=== PATIENT | female | born 2000 | race Caucasian/White ===

== ENCOUNTER 2021-12-11 00:15 | Emergency (ER) | payer OTHER ==
[~2021-12-11] VITALS: Ht 167.6 cm; Wt 56.7 kg
[2021-12-11 00:15] VITALS: BP 90/60
--- NOTE | 2021-12-11 00:17 | NUR ---
PT BIBA BLS ER BED 8
[2021-12-11] MEDS ORDERED: NACL 0.9% 1,000 ML IV ONE (00:20)
[2021-12-11] MEDS ORDERED: ONDANSETRON 4 MG/2 ML VIAL IVP ONE (00:20)
--- NOTE | 2021-12-11 01:18 | NUR ---
FRIEND, MAYR HAMLIN, CALLED REQUESTING UPDATE ON PTs DISCHARGE DUE TO BEING THEIR TRANSPORTATION @ [phone]
--- NOTE | 2021-12-11 01:41 | NUR ---
Patient lying in bed, A/Ox4, chest rise and fall symmetrical, no c/o pain or s/s of discomfort.
--- NOTE | 2021-12-11 02:03 | NUR ---
Patient lying in bed, A/Ox4, chest rise and fall symmetrical, no c/o pain or s/s of discomfort.
[2021-12-11] MEDS ORDERED: ONDA-188 PO (03:08)
--- NOTE | 2021-12-11 03:13 | NUR ---
Patient lying in bed, A/Ox4, chest rise and fall symmetrical, no c/o pain or s/s of discomfort.
--- NOTE | 2021-12-11 04:15 | NUR ---
Patient lying in bed, A/Ox4, chest rise and fall symmetrical, no c/o pain or s/s of discomfort.
[2021-12-11 05:03] VITALS: BP 126/82
--- NOTE | 2021-12-11 05:06 | NUR ---
Patient lying in bed, A/Ox4, chest rise and fall symmetrical, no c/o pain or s/s of discomfort.
== END 2021-12-11 05:15 | disposition home or self-care (01) ==
LOC: MED 00:15
DX: F10.129 Alcohol abuse with intoxication, unspecified (principal); R11.2 Nausea with vomiting, unspecified; Z79.899 Other long term (current) drug therapy
CPT/HCPCS: 96361; 96374; 99285; J2405; J7030